=== PATIENT | male | born 1965 | race Caucasian/White ===

== ENCOUNTER → 2021-07-12 13:42 | Outpatient (CLI) | payer OTHER, SELFPAY ==
--- NOTE | ~2021-07-12 | US_ITS ---
EXAMINATION: US abdomen complete DATE: 07/12/2021 14:31 INDICATION: Left upper quadrant pain TECHNIQUE: Multiple grayscale and Doppler ultrasound images of the abdomen were obtained. COMPARISON: None available FINDINGS: The head, body, and tail of the pancreas are normal. The liver is normal with normal echoge nicity and echotexture. No surface nodularity. Normal hepatopetal flow in the main portal vein. The g allbladder is surgically absent. The normal common bile duct measures 6 mm. The visualized portions o f the aorta and inferior vena cava are normal. The right kidney measures 9.2 x 5.8 x 5.7 cm and contains a 2.8 cm cyst. The left kidney measures 10. 6 x 6 x 5.1 cm. The kidneys demonstrate normal parenchymal echogenicity. There is no hydronephrosis. The spleen is normal in appearance and measures 13.3 cm cm. IMPRESSION: 1. No sonographic correlate for the patient's symptoms. Reviewed, dictated and finalized at location A.
== END ==
PROVIDERS: PCP Family Medicine
DX: R10.12 Left upper quadrant pain (principal)
CPT/HCPCS: 76700